=== PATIENT | female | born 1985 | race Caucasian/White ===

== ENCOUNTER 2018-02-12 13:41 | Inpatient (IN) | payer BC ==
[2018-02-12 14:03] VITALS: BP 123/74
[2018-02-12] MEDS ORDERED: NORCO 5/3251 TABLET PO (14:11)
[2018-02-12] MEDS ORDERED: ZOFRAN ODT4 MG PO (14:12)
[2018-02-12] MEDS ORDERED: PRENATAL TABLE1 EAC3 PO (14:13)
[2018-02-12 14:27] LABS: BASOPHIL (%) 0.2 % (0-1); EOSINOPHIL (%) 0.5 % (0-5); EOSINOPHIL COUNT 0.1 K/uL (0-0.3); HEMATOCRIT 35.5 % (36.0-46.0); IMMATURE GRANULOCYTE (%) 0.4 % (0.0-0.7); LYMPHOCYTE (%) 11.4 % (15-42); LYMPHOCYTE COUNT 1.1 K/uL (1.0-2.8); MCH 30.5 PG (29.0-34.0); MCHC 33.8 G/DL (30.0-36.0); MCV 90.1 FL (83-99); MONOCYTE (%) 9.3 % (3-12); MONOCYTE COUNT 0.9 K/uL (0-0.8); NEUTROPHIL (%) 78.2 % (45-76); NEUTROPHIL COUNT 7.7 K/uL (1.8-6.4); PLATELET COUNT 180 K/uL (156-360); RBC DIS.WIDTH-CV 13.1 % (11.8-14.6); RBC DIS.WIDTH-SD 43.4 % (39-53); RED BLOOD COUNT 3.94 M/uL (3.80-5.20); WHITE BLOOD COUNT 9.9 K/uL (4.1-10.2)
[2018-02-12 14:32] LABS: APPEARANCE CLEAR ((CLEAR)); BILIRUBIN NEGATIVE; BLOOD NEGATIVE; COLOR YELLOW ((YELLOW)); GLUCOSE (STRIP) NEGATIVE; KETONES NEGATIVE; LEUKOCYTES MODERATE; NITRITE NEGATIVE; PROTEIN (STRIP) NEGATIVE; UROBILINOGEN 0.2 MG/DL (0.2-1.0)
[2018-02-12 14:36] LABS: ALBUMIN 3.1 g/dL (3.2-4.8); CHLORIDE 108 mEq/L (99-109); POTASSIUM 4.3 mEq/L (3.7-5.4); SODIUM 137 mEq/L (136-147)
[2018-02-12 14:38] LABS: BACTERIA 2+ /HPF; EPITHELIAL CELLS 1+ /HPF; MUCUS TRACE /LPF; RED BLOOD CELLS 0-5 /HPF (0-5); WHITE BLOOD CELLS 0-5 /HPF (0-5)
[2018-02-12 14:39] LABS: GLUCOSE 79 mg/dL (70-99); TOTAL PROTEIN 6.3 g/dL (6.4-8.3)
[2018-02-12 14:40] LABS: TOTAL BILIRUBIN 0.3 mg/dL (0.0-1.0)
[2018-02-12 14:42] LABS: ALKALINE PHOSPHATASE 115 IU/L (3-129); CREATININE 1.1 mg/dL (0.6-1.3); GFR ESTIMATE (CALCULATED) > 59 mL/min/
[2018-02-12 14:43] LABS: UREA NITROGEN (BUN) 10 mg/dL (9-23)
[2018-02-12 14:44] LABS: AST (GOT) 24 IU/L (2-34)
[2018-02-12 14:45] LABS: ALT (GPT) 17 IU/L (3-49)
[2018-02-12 17:05] VITALS: BP 119/76
[2018-02-12 19:20] VITALS: BP 117/76
[2018-02-12 23:05] LABS: AMPHETAMINE NEGATIVE (500 ng/mL); BARBITURATES NEGATIVE (200 ng/mL); BENZODIAZEPINES NEGATIVE (150 ng/mL); BUPRENORPHINE NEGATIVE (10 ng/mL); COCAINE NEGATIVE (150 ng/mL); METHADONE NEGATIVE (200 ng/mL); METHAMPHETAMINE NEGATIVE (500 ng/mL); OPIATES (MORPHINE) PRESUMPTIVE POSITIVE (100 ng/mL); OXYCODONE NEGATIVE (100 ng/mL); PHENCYCLIDINE NEGATIVE (25 ng/mL); PROPOXYPHENE NEGATIVE (300 ng/mL); THC CANNABINOIDS NEGATIVE (50 ng/mL); TRICYCLIC ANTIDEPRESSANTS NEGATIVE (300 ng/mL)
[2018-02-12 23:13] VITALS: BP 128/65
[2018-02-13] VITALS (12 sets, daily range): BP systolic 96–126; BP diastolic 50–78
[2018-02-13 06:43] LABS: BASOPHIL (%) 0.3 % (0-1); EOSINOPHIL (%) 1.5 % (0-5); EOSINOPHIL COUNT 0.1 K/uL (0-0.3); HEMATOCRIT 32.2 % (36.0-46.0); HEMOGLOBIN 10.6 G/DL (11.9-15.5); IMMATURE GRANULOCYTE (%) 0.4 % (0.0-0.7); LYMPHOCYTE (%) 21.7 % (15-42); LYMPHOCYTE COUNT 1.6 K/uL (1.0-2.8); MCHC 32.9 G/DL (30.0-36.0); MCV 91.2 FL (83-99); MONOCYTE (%) 10.8 % (3-12); MONOCYTE COUNT 0.8 K/uL (0-0.8); NEUTROPHIL (%) 65.3 % (45-76); NEUTROPHIL COUNT 4.9 K/uL (1.8-6.4); PLATELET COUNT 163 K/uL (156-360); RBC DIS.WIDTH-CV 13.2 % (11.8-14.6); RBC DIS.WIDTH-SD 44.2 % (39-53); RED BLOOD COUNT 3.53 M/uL (3.80-5.20); WHITE BLOOD COUNT 7.5 K/uL (4.1-10.2)
[2018-02-13 07:11] LABS: CHLORIDE 108 MEQ/L (99-109); CREATININE 1.3 MG/DL (0.6-1.3); GFR ESTIMATE (CALCULATED) 51 mL/min/; GLUCOSE 71 mg/dL (70-99); POTASSIUM 4.4 MEQ/L (3.7-5.4); SODIUM 139 MEQ/L (136-147); UREA NITROGEN (BUN) 11 mg/dL (9-23)
[2018-02-13 11:41] LABS: BASOPHIL (%) 0.3 % (0-1); EOSINOPHIL (%) 0.7 % (0-5); EOSINOPHIL COUNT 0.1 K/uL (0-0.3); HEMATOCRIT 34.8 % (36.0-46.0); HEMOGLOBIN 11.8 G/DL (11.9-15.5); IMMATURE GRANULOCYTE (%) 0.4 % (0.0-0.7); LYMPHOCYTE (%) 14.3 % (15-42); LYMPHOCYTE COUNT 1.3 K/uL (1.0-2.8); MCH 30.7 PG (29.0-34.0); MCHC 33.9 G/DL (30.0-36.0); MCV 90.6 FL (83-99); MONOCYTE (%) 10.4 % (3-12); NEUTROPHIL (%) 73.9 % (45-76); NEUTROPHIL COUNT 6.9 K/uL (1.8-6.4); PLATELET COUNT 173 K/uL (156-360); RBC DIS.WIDTH-CV 13.2 % (11.8-14.6); RBC DIS.WIDTH-SD 43.2 % (39-53); RED BLOOD COUNT 3.84 M/uL (3.80-5.20); WHITE BLOOD COUNT 9.3 K/uL (4.1-10.2)
[2018-02-13 17:12] LABS: GROUP B STREP NEGATIVE (NEGATIVE)
[2018-02-14] VITALS (9 sets, daily range): BP systolic 96–132; BP diastolic 50–77
[2018-02-14 06:45] LABS: ALBUMIN 2.7 G/DL (3.2-4.8); ALKALINE PHOSPHATASE 89 IU/L (3-129); ALT (GPT) 21 IU/L (3-49); AST (GOT) 22 IU/L (2-34); CHLORIDE 106 MEQ/L (99-109); GFR ESTIMATE (CALCULATED) > 59 mL/min/; GLUCOSE 76 mg/dL (70-99); POTASSIUM 3.9 MEQ/L (3.7-5.4); SODIUM 138 MEQ/L (136-147); TOTAL BILIRUBIN 0.3 MG/DL (0.0-1.0); TOTAL PROTEIN 4.8 G/DL (6.4-8.3); UREA NITROGEN (BUN) 7 mg/dL (9-23)
[2018-02-14 06:53] LABS: CREATININE 0.6 MG/DL (0.6-1.3)
[2018-02-15 05:53] LABS: BASOPHIL (%) 0.3 % (0-1); EOSINOPHIL (%) 2.7 % (0-5); EOSINOPHIL COUNT 0.3 K/uL (0-0.3); HEMOGLOBIN 10.6 G/DL (11.9-15.5); IMMATURE GRANULOCYTE (%) 0.4 % (0.0-0.7); LYMPHOCYTE (%) 24.6 % (15-42); LYMPHOCYTE COUNT 2.5 K/uL (1.0-2.8); MCH 30.2 PG (29.0-34.0); MCHC 33.1 G/DL (30.0-36.0); MCV 91.2 FL (83-99); MONOCYTE (%) 8.6 % (3-12); MONOCYTE COUNT 0.9 K/uL (0-0.8); NEUTROPHIL (%) 63.4 % (45-76); NEUTROPHIL COUNT 6.5 K/uL (1.8-6.4); PLATELET COUNT 168 K/uL (156-360); RBC DIS.WIDTH-CV 13.2 % (11.8-14.6); RBC DIS.WIDTH-SD 43.3 % (39-53); RED BLOOD COUNT 3.51 M/uL (3.80-5.20); WHITE BLOOD COUNT 10.2 K/uL (4.1-10.2)
[2018-02-15 07:45] VITALS: BP 117/67
[2018-02-15] MEDS ORDERED: IBUPROFEN800 MG PO (10:18)
[2018-02-15] MEDS ORDERED: FERROCITE324 MG PO (10:26)
== END 2018-02-15 13:02 | disposition home or self-care (01) | DRG 767 ==
LOC: LDRP-OP 13:41 → 2WEST 13:42
PROVIDERS: Advanced Practice Midwife; Obstetrics & Gynecology
DX: O26.833 Pregnancy related renal disease, third trimester (principal); O99.02 Anemia complicating childbirth; Z3A.37 37 weeks gestation of pregnancy; Z37.0 Single live birth; D62 Acute posthemorrhagic anemia; N13.2 Hydronephrosis with renal and ureteral calculous obstruction; O71.4 Obstetric high vaginal laceration alone; O73.0 Retained placenta without hemorrhage
CPT/HCPCS: 76770; 76805; 80048; 80053; 81003; 84999; 85025; 85025 91; 87086; 87653; G0378; J7120